=== PATIENT | female | born 1965 | race Caucasian/White ===

== ENCOUNTER 2018-10-03 15:57 | Emergency (ER) | payer MEDICAID ==
[~2018-10-03] VITALS: Ht 165.1 cm; Wt 70.3 kg
[2018-10-03 16:22] VITALS: BP 150/61
--- NOTE | 2018-10-03 16:40 | NUR ---
BIB DAUGHTER. AAO X4 C/O "PINCHING" PAIN TO BUTTOCKS RADIATING TO RIGHT LEG AND RIGHT FOOT, BILATERAL HANDS, HEADACHE, N/V SINCE TUESDAY. PT STATES SHE WAS SEEN BY PCP YESTERDAY FOR UTI SYMPTOMS AND GIVEN RX OF MACROBID 100MG. PT DENIES TAKING ANY PAIN MEDS OTC, DENIES TRAUMA/INJURY. PT AMBULATED WITH STEADY GAIT. HOB UP. BED SIDE RAILS UP X1. ON LOW BED POSITION, LOCKED. ER TO EVALUATE PT.
--- NOTE | 2018-10-03 16:48 | NUR ---
PEREZ SHAH AT BEDSIDE FOR PT EVALUATION
[2018-10-03] MEDS ORDERED: IBUPROFEN 600 MG TAB PO ONE (16:50)
[2018-10-03] MEDS ORDERED: cefTRIAXone 1,000 MG in LIDOCAINE MPF 1% - 5 mL VIAL 2.1 ML IM ONE (16:50)
[2018-10-03 17:53] VITALS: BP 142/64
--- NOTE | 2018-10-03 17:53 | NUR ---
Patient discharged with v/s stable. Written and verbal after care instructions given and explained. Patient alert, oriented and verbalized understanding of instructions. Ambulatory with steady gait. All questions addressed prior to discharge. ID band removed. Patient advised to follow up with PMD. Rx of PREDNISONE, IBUPROFEN 400 MG, KEFLEX given. Patient educated on indication of medication including possible reaction and side effects. Opportunity to ask questions provided and answered.
== END 2018-10-03 17:53 | disposition home or self-care (01) ==
LOC: MED 15:57
DX: N39.0 Urinary tract infection, site not specified (principal); M54.41 Lumbago with sciatica, right side; E11.40 Type 2 diabetes mellitus with diabetic neuropathy, unspecified; R11.0 Nausea
CPT/HCPCS: 81002; 81025; 82948; 87086; 96372; 99283; J0696; J2001

== ENCOUNTER 2019-09-02 14:17 | Emergency (ER) | payer MEDICAID, SELFPAY ==
[~2019-09-02] VITALS: Ht 160 cm; Wt 76.7 kg
[2019-09-02 14:26] VITALS: BP 106/76
--- NOTE | 2019-09-02 14:39 | NUR ---
COVID SWAB DONE.
[2019-09-02] MEDS ORDERED: KETOROLAC 30 MG/ML VIAL IM ONE (14:40)
[2019-09-02] MEDS ORDERED: HYDROcodone/APAP 5/325 MG 1 TAB TAB PO ONE (14:40)
--- NOTE | 2019-09-02 14:53 | NUR ---
C/O COUGH, HEADACHE, BODY ACHE X LAST NIGHT. MED HX: DM,, GASTRITIS, FIBROMYALGIA
[2019-09-02 16:14] VITALS: BP 106/76
== END 2019-09-02 16:41 | disposition home or self-care (01) ==
LOC: MED 14:17 → EEVIPCON 14:17 → MED 16:41
DX: M79.10 Myalgia, unspecified site (principal); R68.83 Chills (without fever); R05 Cough; E11.9 Type 2 diabetes mellitus without complications; Z90.49 Acquired absence of other specified parts of digestive tract
CPT/HCPCS: 71045; 82948; 96372; 99284; J1885; Q0092; U0003

== ENCOUNTER 2020-02-12 15:16 | Emergency (ER) | payer MEDICAID, SELFPAY ==
[~2020-02-12] VITALS: Ht 162.6 cm; Wt 75.3 kg
[~2020-02-12 15:16] MED LIST: APIX2.5 PO; ASCO500T95 PO; DEC4 PO; ERGO500028 PO; METF500T PO; ZINC220C28 PO
[2020-02-12 15:31] VITALS: BP 110/55
--- NOTE | 2020-02-12 15:35 | NUR ---
C/O L KNEE PAIN 7/10 X 1 WEEK. PMH: DM,FIBROMYALGIA
[2020-02-12 16:30] VITALS: BP 110/55
--- NOTE | 2020-02-12 16:30 | NUR ---
Patient discharged with v/s stable. Written and verbal after care instructions given and explained. Patient alert, oriented and verbalized understanding of instructions. Ambulatory with CRUTCHES. All questions addressed prior to discharge. ID band removed. Patient advised to follow up with PMD. Rx of NORCO & VOLTAREN given. Patient educated on indication of medication including possible reaction and side effects. Opportunity to ask questions provided and answered.
== END 2020-02-12 16:34 | disposition home or self-care (01) ==
LOC: MED 15:16
DX: S86.912A Strain of unspecified muscle(s) and tendon(s) at lower leg level, left leg, initial encounter (principal); E11.9 Type 2 diabetes mellitus without complications; Z79.84 Long term (current) use of oral hypoglycemic drugs; Z79.899 Other long term (current) drug therapy; W22.8XXA Striking against or struck by other objects, initial encounter; Y93.89 Activity, other specified; Y92.89 Other specified places as the place of occurrence of the external cause; Y99.8 Other external cause status
CPT/HCPCS: 73560; 99283

== ENCOUNTER 2020-08-11 09:58 | Emergency (ER) | payer MEDICAID ==
[~2020-08-11] VITALS: Ht 160 cm; Wt 77.6 kg
[~2020-08-11 09:58] MED LIST changes: +ERGO-30 PO; -ERGO500028 PO
[2020-08-11 10:05] VITALS: BP 112/75
[2020-08-11 11:06] LABS: APPEARANCE,URINE CLEAR (CLEAR); BILIRUBIN,URINE NEGATIVE (NEGATIVE); BLOOD, URINE TRACE-I (NEGATIVE); COLOR,URINE YELLOW (YELLOW); LEUKOCYTE ESTERASE ,URINE NEGATIVE (NEGATIVE); NITRITE, URINE NEGATIVE (NEGATIVE); UGLUCOSE NEGATIVE (NEGATIVE)
[2020-08-11 11:30] LABS: RBC,URINE 0-5 /HPF (0-5); WBC,URINE 0-5 /HPF (0-5)
[2020-08-11 12:10] LABS: BASOPHILS % (AUTO) 0.8 % (0.0-2.0); EOSINOPHILS # (AUTO) 0.2 K/uL (0-0.4); EOSINOPHILS % (AUTO) 2.7 % (0.0-4.0); HEMATOCRIT 39.4 % (36-48); HEMOGLOBIN 13.2 g/dL (12.0-16.0); LYMPHOCYTES # (AUTO) 1.7 K/uL (2.5-16.5); LYMPHOCYTES % (AUTO) 28.5 % (20.5-51.1); MEAN CORPUSCULAR HEMOGLOBIN 29 pg (27-31); MEAN CORPUSCULAR HGB CONC 33 g/dL (33-37); MEAN CORPUSCULAR VOLUME 85.9 fL (80-94); MONOCYTES # (AUTO) 0.3 K/uL (0.8-1.0); MONOCYTES % (AUTO) 5.4 % (1.7-9.3); NEUTROPHILS # (AUTO) 3.7 K/uL (1.8-7.7); NEUTROPHILS % (AUTO) 62.6 % (42.2-75.2); PLATELET COUNT (AUTO) 277 K/uL (140-450); RED BLOOD CELL COUNT(AUTO) 4.59 MIL/uL (4.20-5.40); RED CELL DISTRIBUTION WIDTH 14.6 % (11.6-13.7); WHITE BLOOD COUNT (AUTO) 5.9 K/uL (4.8-10.8)
[2020-08-11 12:29] LABS: ALBUMIN 3.8 g/dL (3.4-5.0); ANION GAP 11.2 (8-16); CARBON DIOXIDE 28.8 mmol/L (21-32); CREATININE 0.8 mg/dL (0.6-1.3); TOTAL BILIRUBIN 0.7 mg/dL (0.0-1.0)
[2020-08-11] MEDS ORDERED: IBUP-2213 PO (12:51)
[2020-08-11] MEDS ORDERED: ONDA-24 PO (12:51)
[2020-08-11] MEDS ORDERED: TAMS0.4C96 PO (12:51)
[2020-08-11] MEDS ORDERED: ACET-8386 PO (12:51)
[2020-08-11] MEDS ORDERED: KETOROLAC 30 MG/ML VIAL IM ONE (12:55)
[2020-08-11 13:10] VITALS: BP 112/75
== END 2020-08-11 13:10 | disposition home or self-care (01) ==
LOC: MED 09:58
DX: N20.0 Calculus of kidney (principal); E11.9 Type 2 diabetes mellitus without complications; Z90.49 Acquired absence of other specified parts of digestive tract; Z79.84 Long term (current) use of oral hypoglycemic drugs; Z79.899 Other long term (current) drug therapy; Z98.890 Other specified postprocedural states
CPT/HCPCS: 36415; 74176; 80053; 81001; 81025; 85025; 96372; 99284; J1885

== ENCOUNTER 2020-08-31 07:52 | Inpatient (IN) | payer MEDICAID ==
[~2020-08-31] VITALS: Ht 160 cm; Wt 75.3 kg
[~2020-08-31 07:52] MED LIST changes: +ACET-8386 PO; +IBUP-2213 PO; +ONDA-24 PO; +TAMS0.4C96 PO
[2020-08-31 07:56] VITALS: BP 133/48
--- NOTE | 2020-08-31 08:06 | NUR ---
PATIENT AMBULATED TO BED 7
--- NOTE | 2020-08-31 08:20 | NUR ---
55 FEMALE WITH C/O INTERMITENT R FLANK PAIN THAT RADIATES TO R LOWER ABDOMEN X1 DAY. PT STATES SHE WAS DX WITH KIDNEY STONE X3 WEEKS AGO, BUT HAS EXPERINCES URINARY BURNING SENSATION AND HESITANCY X 3 WEEKS. PMH: DM, FIBROMYALGIA, C SECTION, KIDNEY STONES NKA
[2020-08-31] MEDS ORDERED: ONDANSETRON 4 MG/2 ML VIAL IVP ONE (08:45)
[2020-08-31] MEDS ORDERED: MORPHINE SULFATE 4 MG/ML SYR IVP ONE ×2 (08:45→12:00)
[2020-08-31] MEDS ORDERED: PHENAZOPYRIDINE 100 MG TAB PO ONE (08:45)
--- NOTE | 2020-08-31 09:01 | NUR ---
Karthikeyan stein in [facility] - 08/31/20 at 0901 by [email or web address] PT TAKEN TO CT VIA W/C
--- NOTE | 2020-08-31 09:01 | NUR ---
PATIENT TAKEN TO CT VIA WHEELCHAIR
--- NOTE | 2020-08-31 09:01 | NUR ---
Blood Drawn, taken to lab gave to Trevon cath lab technologist.
--- NOTE | 2020-08-31 09:07 | NUR ---
Pt brought to ER bed 7 via W/C.
[2020-08-31 09:40] LABS: BASOPHILS % (AUTO) 0.6 % (0.0-2.0); EOSINOPHILS # (AUTO) 0.1 K/uL (0-0.4); EOSINOPHILS % (AUTO) 2.2 % (0.0-4.0); HEMATOCRIT 39.1 % (36-48); HEMOGLOBIN 13.2 g/dL (12.0-16.0); LYMPHOCYTES # (AUTO) 1.6 K/uL (2.5-16.5); LYMPHOCYTES % (AUTO) 26.3 % (20.5-51.1); MEAN CORPUSCULAR HEMOGLOBIN 29 pg (27-31); MEAN CORPUSCULAR HGB CONC 34 g/dL (33-37); MEAN CORPUSCULAR VOLUME 86.2 fL (80-94); MONOCYTES # (AUTO) 0.3 K/uL (0.8-1.0); MONOCYTES % (AUTO) 5.4 % (1.7-9.3); NEUTROPHILS # (AUTO) 4.1 K/uL (1.8-7.7); NEUTROPHILS % (AUTO) 65.5 % (42.2-75.2); PLATELET COUNT (AUTO) 238 K/uL (140-450); RED BLOOD CELL COUNT(AUTO) 4.54 MIL/uL (4.20-5.40); RED CELL DISTRIBUTION WIDTH 14.7 % (11.6-13.7); WHITE BLOOD COUNT (AUTO) 6.2 K/uL (4.8-10.8)
[2020-08-31 09:54] LABS: ALBUMIN 4.3 g/dL (3.4-5.0); ANION GAP 15.5 (8-16); CARBON DIOXIDE 24.3 mmol/L (21-32); CREATININE 0.9 mg/dL (0.6-1.3); POTASSIUM 3.8 mmol/L (3.5-5.1); TOTAL BILIRUBIN 0.5 mg/dL (0.0-1.0)
--- NOTE | 2020-08-31 09:57 | NUR ---
PT SLEEPING IN BED RIGHT NOW. VITAL SIGNS TAKEN AND STABLE. LIGHTS TURNED OFF FOR PATIENT. BED TO LOWEST POSITION. WILL CONTUINE TO MONITOR
[2020-08-31 10:31] LABS: BILIRUBIN,URINE NEGATIVE (NEGATIVE); BLOOD, URINE 1+ (NEGATIVE); COLOR,URINE YELLOW (YELLOW); LEUKOCYTE ESTERASE ,URINE NEGATIVE (NEGATIVE); NITRITE, URINE NEGATIVE (NEGATIVE); UGLUCOSE NEGATIVE (NEGATIVE)
--- NOTE | 2020-08-31 10:48 | NUR ---
PT SLEEPING BEDSIDE. WILL CONTUINE TO MONITOR. BED IN LOWEST POSITION
[2020-08-31 10:56] LABS: WBC,URINE 0-5 /HPF (0-5)
[2020-08-31 10:57] LABS: APPEARANCE,URINE HAZY (CLEAR)
--- NOTE | 2020-08-31 11:43 | NUR ---
pt ambulated to restroom. gait steady
[2020-08-31] MEDS ORDERED: KETOROLAC 15 MG/ML VIAL IVP ONE (12:00)
[2020-08-31] MEDS ORDERED: ONDANSETRON 4 MG/2 ML VIAL IM/IVP PRN (12:05)
[2020-08-31] MEDS ORDERED: DEXTROSE 50% 50 ML SYR IVP PRN (12:05)
[2020-08-31] MEDS ORDERED: POTASSIUM CHLORIDE 10 MEQ TABER PO PRN (12:05)
[2020-08-31] MEDS ORDERED: guaiFENesin DM 200/20 MG-10 ML 10 ML UDC PO PRN (12:05)
[2020-08-31] MEDS ORDERED: INSULIN LISPRO SLIDING SCALE 100 UNITS/ML VIAL SUBQ PRN (12:05)
[2020-08-31] MEDS ORDERED: ACETAMINOPHEN 325 MG TAB PO PRN (12:05)
[2020-08-31] MEDS ORDERED: ZOLPIDEM 5 MG TAB PO PRN (12:05)
[2020-08-31] MEDS ORDERED: DOCUSATE SODIUM 100 MG GELCAP PO PRN (12:05)
[2020-08-31] MEDS ORDERED: OMEP40EC24 PO (12:07)
[2020-08-31] MEDS ORDERED: cefTRIAXone 1,000 MG VIAL ONE (12:09)
--- NOTE | 2020-08-31 12:10 | NUR ---
REPORT RECEIVED VIA TELEPHONE FROM TYPIST CASEY. PATIENT WILL BE TRANSFERRED TO FLOOR SOON.
[2020-08-31 12:15] VITALS: BP 141/71
--- NOTE | 2020-08-31 12:19 | NUR ---
X-Ray at bedside.
--- NOTE | 2020-08-31 12:19 | NUR ---
RAD AT BEDSIDE.
--- NOTE | 2020-08-31 12:20 | NUR ---
CALLED TO GIVE REPORT TO RN FOR ADMIT. NO ANSWER, WILL ATTEMPT AGAIN IN 10 MIN. CHARGE NURSE CASEY MADE AWARE
[2020-08-31] MEDS: TAMSULOSIN 0.4 MG CAP PO SCH (12:30)
--- NOTE | 2020-08-31 12:35 | NUR ---
PT WHEELED ONTO FLOOR, AMBULATED TO BED ON STEADY GAIT, HAS R FA 20G IV RUNNING ROCEPHIN. AOX4, ON ROOM AIR, NO SOB OR DISTRESS NOTED. PT MEDICATED FOR PAIN IN ER. CURRENTLY STATES IT'S TOLERABLE, NO NEED FOR PRN PAIN MED AT THIS TIME. MRSA SCREENING DONE. ORIENTED PATIENT TO FLOOR, BED, TV, CALL LIGHT, BATHROOM, AND VISITING HOURS. PATIENT VERBALIZED UNDERSTANDING. VERBALIZED PLAN OF CARE TO PATIENT, PATIENT VERBALIZED UNDERSTANDING. BED IN LOWEST POSITION WITH BRAKES ON, CALL LIGHT WITHIN REACH, WILL CONTINUE TO MONITOR PATIENT.
--- NOTE | 2020-08-31 12:35 | NUR ---
Patient will be admitted to care of DR. DAJA CAMREN. Admited to MED-SURG. Will go to room 120A. Belongings list completed. Report to VALERIE TELLES.
[2020-08-31 13:02] LABS: PROTHROMBIN TIME 9.9 secs (10.8-13.4)
[2020-08-31 13:13] LABS: BARBITURATE, URINE NEGATIVE ng/ml (NEG <=200); BENZODIAZEPINE, URINE NEGATIVE ng/mL (NEG <=200); CANNABINOID, URINE NEGATIVE ng/mL (NEG <=50); COCAINE, URINE NEGATIVE ng/mL (NEG <=300); OPIATE, URINE NEGATIVE ng/mL (NEG <=2000); PHENCYCLIDINE SCREEN,URINE NEGATIVE ng/mL (NEG <=25)
[2020-08-31 13:15] LABS: CHOL/HDL RATIO 3.4 (1-4.5); FREE T4 (FREE THYROXINE) 0.8 ng/dL (0.76-1.46); MAGNESIUM 1.9 mg/dL (1.8-2.4); PHOSPHORUS 3.9 mg/dL (2.5-4.9); THYROID STIMULATING HORMONE 3.77 uIU/mL (0.34-3.74)
[2020-08-31] MEDS: DEXT 5% /NACL 0.9% 1,000 ML IV SCH (13:50)
--- NOTE | 2020-08-31 13:55 | NUR ---
DR ALSTON IN TO SEE PATIENT. WAITING FOR HIS ORDERS.
--- NOTE | 2020-08-31 14:33 | NUR ---
PT CURRENTLY GETTING US OF KIDNEYS DONE. WILL WAIT FOR RESULTS.
[2020-08-31] MEDS: HYDROcodone/APAP 7.5/325 MG 1 TAB PO PRN ×2 (15:31→22:34)
[2020-08-31 16:00] VITALS: BP 154/84
[2020-08-31] MEDS: MORPHINE SULFATE 2 MG/ML SYR IVP PRN (18:53)
--- NOTE | 2020-08-31 18:55 | NUR ---
PRN PAIN MEDICATION GIVEN REQUESTED. PATIENT TOLERATED IT. NO COMPLAINTS AT THIS TIME. WILL CONTINUE TO MONITOR PATIENT ENDORSE TO DEMURRAGE MAN NURSE.
--- NOTE | 2020-08-31 20:00 | NUR ---
RECEIVED PATIENT ALERT AND COHERENT, FAMILY AT BEDSIDE.
[2020-08-31] MEDS ORDERED: metFORMIN 500 MG TAB PO SCH (21:00)
--- NOTE | 2020-08-31 21:00 | NUR ---
ALL DUE MEDS GIVEN. TOLERATED WELL.
[2020-08-31] MEDS: BLOOD GLUCOSE MONITORING 1 DEV DEV FS SCH (21:19)
--- NOTE | 2020-08-31 23:00 | NUR ---
PATIENT C/O PAIN 06/30 , MEDICATED WITH NORCO 7.5/325 MG. HELPFUL
--- NOTE | 2020-09-01 01:00 | NUR ---
PATIENT ASKED FOR WARM BLANKET AND WAS PROVIDED
[2020-09-01] MEDS: MORPHINE SULFATE 2 MG/ML SYR IVP PRN ×2 (02:38→09:46)
[2020-09-01 04:00] VITALS: BP 116/63
[2020-09-01] MEDS: DEXT 5% /NACL 0.9% 1,000 ML IV SCH (04:35)
[2020-09-01] MEDS: HYDROcodone/APAP 7.5/325 MG 1 TAB PO PRN (05:38)
[2020-09-01 05:49] LABS: BASOPHILS % (AUTO) 0.5 % (0.0-2.0); EOSINOPHILS # (AUTO) 0.1 K/uL (0-0.4); EOSINOPHILS % (AUTO) 1.5 % (0.0-4.0); HEMATOCRIT 37.8 % (36-48); HEMOGLOBIN 12.7 g/dL (12.0-16.0); LYMPHOCYTES # (AUTO) 1.1 K/uL (2.5-16.5); LYMPHOCYTES % (AUTO) 15.3 % (20.5-51.1); MEAN CORPUSCULAR HEMOGLOBIN 29 pg (27-31); MEAN CORPUSCULAR HGB CONC 34 g/dL (33-37); MONOCYTES # (AUTO) 0.5 K/uL (0.8-1.0); MONOCYTES % (AUTO) 7.1 % (1.7-9.3); NEUTROPHILS # (AUTO) 5.6 K/uL (1.8-7.7); NEUTROPHILS % (AUTO) 75.6 % (42.2-75.2); PLATELET COUNT (AUTO) 271 K/uL (140-450); RED BLOOD CELL COUNT(AUTO) 4.34 MIL/uL (4.20-5.40); RED CELL DISTRIBUTION WIDTH 15.1 % (11.6-13.7); WHITE BLOOD COUNT (AUTO) 7.5 K/uL (4.8-10.8)
[2020-09-01 06:01] LABS: ANION GAP 14.8 (8-16); CARBON DIOXIDE 26.1 mmol/L (21-32); CREATININE 1.2 mg/dL (0.6-1.3); POTASSIUM 3.9 mmol/L (3.5-5.1)
[2020-09-01] MEDS: BLOOD GLUCOSE MONITORING 1 DEV DEV FS SCH (07:23)
--- NOTE | 2020-09-01 07:24 | NUR ---
ALL REPORTS WERE GIVEN, TRANSFER OF CARE ENDORSED.
[2020-09-01] MEDS ORDERED: metFORMIN 500 MG TAB PO SCH (07:25)
--- NOTE | 2020-09-01 07:30 | NUR ---
received patient report. pt resting resting in bed sitting up, aox4, has complaints of abd pain 09/30. prn med will be given. patient able to make needs known and ambulate on her own. all am meds given. still on ra, vs stable.
[2020-09-01 08:00] VITALS: BP 121/64
[2020-09-01 08:06] LABS: T4 (THYROXINE) 6.6 ug/dL (4.5-12.0)
[2020-09-01] MEDS: TAMSULOSIN 0.4 MG CAP PO SCH (08:31)
[2020-09-01] MEDS ORDERED: cefTRIAXone 1,000 MG in LIDOCAINE MPF 1% 2.1 ML IM SCH (09:00)
[2020-09-01] MEDS ORDERED: PANTOPRAZOLE 40 MG TABEC PO SCH (09:00)
--- NOTE | 2020-09-01 09:10 | NUR ---
PATIENT HAS BEEN SCREENED AND CATEGORIZED LOW NUTRITION RISK. PATIENT WILL BE SEEN WITHIN 7 DAYS OF ADMISSION. 09/07/[address]
[2020-09-01] MEDS ORDERED: TAMS0.4C96 PO (10:01)
[2020-09-01] MEDS ORDERED: PANT40EC56 PO (10:01)
[2020-09-01] MEDS ORDERED: LEVO750T51 PO (10:03)
[2020-09-01 14:07] VITALS: BP 121/64
[2020-09-01] MEDS ORDERED: IBUP-2213 PO (17:30)
[2020-09-02] MEDS ORDERED: TRAM50TA1 PO (20:42)
== END 2020-09-01 14:50 | disposition home or self-care (01) | DRG 465 ==
LOC: MED 07:52 → MTU 12:04 → EEVIPCON 12:04 → MTU 12:33
PROVIDERS: ADMIT Family Medicine; ATTEND Family Medicine
DX: N13.2 Hydronephrosis with renal and ureteral calculous obstruction (principal); E11.00 Type 2 diabetes mellitus with hyperosmolarity without nonketotic hyperglycemic-hyperosmolar coma (NKHHC); E86.0 Dehydration; I10 Essential (primary) hypertension; M79.7 Fibromyalgia
CPT/HCPCS: 36415; 71045; 76770; 80048; 80053; 80305; 81001; 82150; 82948; 83036; 83605; 83690; 83735; 83880; 84100; 84436; 84439; 84443; 84479; 84484; 85025; 85610; 85730; 87040; 87081; 96365; 96375; 96376; 99285; J0696; J1815; J1885; J2270; J2405; J7060

== ENCOUNTER 2020-09-02 18:10 | Emergency (ER) | payer MEDICAID ==
[~2020-09-02] VITALS: Ht 160 cm; Wt 75.3 kg
[~2020-09-02 18:10] MED LIST changes: +LEVO750T51 PO; +OMEP40EC24 PO; +PANT40EC56 PO
[2020-09-02 18:23] VITALS: BP 141/62
[2020-09-02 19:30] VITALS: BP 141/62
--- NOTE | 2020-09-02 19:42 | NUR ---
PT AMBULATORY TO BED #7
--- NOTE | 2020-09-02 19:55 | NUR ---
55 Y/O FEMALE PATIENT PRESENTS TO ED WITH RT BACK PAIN. PT STATES "I HAVE A RT BACK PAIN THAT IS WORSENING, NONRADIATING AND SHARP 10/10 . DENIES N/V/D; SKIN IS PINK/WARM/DRY; AAOX4 WITH EVEN AND STEADY GAIT; LUNGS CLEAR BL; HR EVEN AND REGULAR; PT DENIES ANY FEVER, CP, SOB, OR COUGH AT THIS TIME; PATIENT STATES PAIN OF 0/10 AT THIS TIME; VSS; PATIENT POSITIONED FOR COMFORT; HOB ELEVATED; BEDRAILS UP X2; BED DOWN. ER MD MADE AWARE OF PT STATUS. NKA PMH: HTN, KIDNEY INFECTION
--- NOTE | 2020-09-02 20:06 | NUR ---
Patient being evaluated by Dr. Roth at bedside.
[2020-09-02] MEDS ORDERED: TRAM50TA1 PO (20:42)
--- NOTE | 2020-09-02 21:05 | NUR ---
All discharge instructions and medication administration/side effects explained to patient. patient sent home with Rx of tramadol All questions asked and answered prior to discharge. pt ambulatory to private vehicle in stable condition.
== END 2020-09-02 21:05 | disposition home or self-care (01) ==
LOC: MED 18:10
DX: N20.0 Calculus of kidney (principal); R11.2 Nausea with vomiting, unspecified; E11.9 Type 2 diabetes mellitus without complications; I10 Essential (primary) hypertension; Z79.899 Other long term (current) drug therapy
CPT/HCPCS: 82948; 99283